=== PATIENT | female | born 1970 | race Caucasian/White ===

== ENCOUNTER 2020-04-17 12:57 | Emergency (ER) | payer BC, SELFPAY ==
--- NOTE | ~2020-04-17 | XR_ITS ---
EXAMINATION: XR hip RT min 2V DATE: 04/17/2020 13:29 INDICATION: Right hip pain. TECHNIQUE: 3 views of right hip were obtained. COMPARISON: None. FINDINGS: Bone alignment is normal. No fracture. Right hip joint space is normal. IMPRESSION: 1. Normal right hip. Reviewed, dictated and finalized at location A. IMPRESSION: 1. Normal right hip.
[2020-04-17 13:02] VITALS: BP 100/67; PULSE 76; RESP 22; TEMP 36.6; O2SAT 100
--- NOTE | 2020-04-17 13:07 | ED.BACK ---
HPI - Back Pain/Injury General Chief Complaint: Back Pain/Injury Stated Complaint: scyatic pain Time Seen by Provider: 04/17/20 13:17 Source: patient and RN notes reviewed Mode of arrival: ambulatory Limitations: no limitations History of Present Illness HPI Narrative: 49-year-old male presents with concern for right low back/hip pain. Reports pain radiates down the right leg and up the right side of her back. Reports she slipped and fell down stairs, sliding down approximately 3 stairs. Reports she also hit the back of her head on the stair. She denies loss of consciousness. Denies subsequent nausea, vomiting. Denies headache. She denies bruising, open skin. She denies any intervention. She denies loss of bowel or bladder function, perianal anesthesia, fever, abdominal pain. MD elicited complaint: back pain Related Data Home Medications Medication Instructions Recorded Confirmed etonogestrel [Nexplanon] 1 implant SUBDERMAL ONCE 07/05/19 04/17/20 topiramate [Topamax] 25 mg PO DAILY 07/05/19 04/17/20 topiramate [Topamax] 50 mg PO DAILY 07/05/19 04/17/20 Imitrex 04/17/20 Allergies Allergy/AdvReac Type Severity Reaction Status Date / Time Penicillins Allergy Unknown Rash Verified 04/17/20 13:17 codeine AdvReac Unknown Nausea and Verified 04/17/20 13:17 Vomiting hydrocodone AdvReac Unknown Nausea and Verified 04/17/20 13:17 Vomiting Review of Systems Review of Systems: Narrative: CONSTITUTIONAL: Denies malaise, chills, sweats, or fever. EYES: Denies visual changes CARDIOVASCULAR: Denies chest pain, palpitations, or edema. RESPIRATORY: Denies cough or dyspnea. GASTROINTESTINAL: Denies abdominal pain, nausea, vomiting, diarrhea, loss of bowel GENITOURINARY: Denies loss of bladder perianal anesthesia SKIN: Denies bruising, redness MUSCULOSKELETAL: Reports left hip/low back pain that radiates symptomatic abdominal left leg NEUROLOGIC: Denies numbness, weakness All systems reviewed & are unremarkable except as noted in HPI and below PMFSH Comments At time of signature, agree with nursing past medical, surgical, social and family history. There is no relevant family history pertinent to the presenting complaint Exam Narrative: Exam Narrative: GENERAL: Well-appearing, well-nourished, and in no acute distress. HEAD: Normocephalic, atraumatic. EYES: PERRLA and EOMI. NECK: Supple. No lymphadenopathy. CHEST: Clear to auscultation. No respiratory distress. HEART: Regular rate and rhythm. Distal pulses palpable and equal, cap refill <3 seconds ABDOMEN: Soft, nontender, nondistended, normal active bowel sounds, no palpable or pulsatile masses. No CVA tenderness MUSCULOSKELETAL: Normal range of motion and strength in all extremities; 5/5 strength with hip flexion and extension, dorsiflexion and extension, knee flexion and extension, plantar flexion and extension. Normal sensation in dermatomal distributions with sensitivity to light touch and pain. No midline back tenderness to palpation. No paraspinal tenderness. Transfers from sitting to standing. Right hip tenderness, patient walking slightly bent over, reports this helps pain, otherwise normal gait SKIN: Warm, dry, no rash. No ecchymosis, erythema, open wounds to back. NEURO: No focal deficits. Alert and oriented x3. Reflexes intact. PSYCH: Normal mood and affect Course Course Emergency Course: Patient is aware of diagnosis, understands and agrees to treatment plan. Anticipatory guidance given. Patient agrees to follow-up as directed and is aware of reasons to seek care at the emergency department. Portions of this record may have been created with voice recognition software Vital Signs Vital signs: Reviewed. MDM - Back Pain/Injury MDM Narrative Medical decision making narrative: No risk factors or findings concerning for epidural abscess, diskitis, vertebral osteomyelitis, cord compression, cauda equina, vertebral fracture or bone malignancy, AAA, or pyelonephri
[2020-04-17] MEDS: methylPREDNISolone SOD SUCC 125 MG VIAL IM (13:42)
== END 2020-04-17 14:05 | disposition home or self-care (01) ==
PROVIDERS: Emergency Provider Nurse Practitioner; PCP Internal Medicine
DX: M54.5 Low back pain (principal)
CPT/HCPCS: 73502; 96372; 99213; G0463; J2930

== ENCOUNTER 2020-07-04 17:39 | Emergency (ER) | payer BC, SELFPAY ==
--- NOTE | ~2020-07-04 | XR_ITS ---
EXAMINATION: XR foot RT min 3V DATE: 07/04/2020 18:46 INDICATION: Right foot pain TECHNIQUE: Dorsoplantar, lateral, and 2 oblique views of the right foot were obtained. COMPARISON: None. FINDINGS: There is no fracture, dislocation, or subluxation. Mild osteoarthritis is noted at the firs t metatarsophalangeal joint. The soft tissues are unremarkable. A plantar calcaneal enthesophyte is n oted. IMPRESSION: 1. No acute osseous abnormality. Reviewed, dictated and finalized at location A. SETTER
[2020-07-04 18:18] VITALS: BP 130/88; PULSE 92; RESP 20; TEMP 36.8; O2SAT 98
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
== END 2020-07-04 19:18 | disposition home or self-care (01) ==
PROVIDERS: Emergency Provider Nurse Practitioner; PCP Internal Medicine
DX: S99.922A Unspecified injury of left foot, initial encounter (principal); W18.49XA Other slipping, tripping and stumbling without falling, initial encounter; K13.70 Unspecified lesions of oral mucosa
CPT/HCPCS: 73630; 99213; G0463

== ENCOUNTER 2022-10-10 10:33 | Emergency (ER) | payer OTHER, SELFPAY ==
[2022-10-10 10:42] VITALS: BP 106/76; PULSE 81; RESP 20; TEMP 37.3; O2SAT 100
--- NOTE | 2022-10-10 11:01 | ED.NAVMDI ---
HPI - Nausea/Vomiting/Diarrhea General Chief complaint: Nausea/Vomiting/Diarrhea Stated complaint: diarrhea lower flank pain left side Source: patient and RN notes reviewed History of Present Illness HPI Narrative: 52-year-old female presents to urgent care with complaints of intermittent stomach cramping and left-sided pain every time she eats or drinks anything. Patient states this is followed by diarrhea and nausea. Patient states this has been going on since yesterday morning. Patient has a co-worker had the same symptoms this week and states the co-worker son had the same symptoms as well. Patient denies any pain at this time. Patient states her only discomfort is left upper flank pain and reports as a soreness. Patient states this left upper flank pain is exacerbated after she eats and drinks. Denies any fevers, chills, dysuria, or hematuria. Patient has been taking ibuprofen and Zofran with good relief. Some parts of this dictation were generated by voice recognition software and may contain typographical and/or grammatical inaccuracies. Related Data Home Medications Medication Instructions Recorded Confirmed etonogestrel 68 mg subdermal 1 implant subdermal ONCE 07/05/19 04/17/20 implant (Nexplanon) topiramate 50 mg tablet (Topamax) 50 mg PO DAILY 07/05/19 04/17/20 Imitrex 04/17/20 amitriptyline 25 mg tablet mg 10/10/22 baclofen 10 mg tablet mg 10/10/22 dulaglutide 0.75 mg/0.5 mL mg subcut 10/10/22 subcutaneous pen injector (Trulicity) gabapentin 300 mg capsule mg 10/10/22 sumatriptan succinate 100 mg tablet mg PO 10/10/22 Allergies Allergy/AdvReac Type Severity Reaction Status Date / Time Penicillins Allergy Unknown Rash Verified 08/27/22 15:27 codeine AdvReac Unknown Nausea and Verified 08/27/22 15:27 Vomiting hydrocodone AdvReac Unknown Nausea and Verified 08/27/22 15:27 Vomiting Review of Systems Review of Systems: CONSTITUTIONAL: Denies fever, chills, or sweats. EYES: Denies visual changes, redness, or discharge. ENT: Denies otalgia and sore throat CARDIOVASCULAR: Denies chest pain, palpitations, or edema. RESPIRATORY: Denies cough or dyspnea. GASTROINTESTINAL: abdominal pain, nausea, and diarrhea. GENITOURINARY: Denies dysuria or hematuria. SKIN: Denies rash or itching. MUSCULOSKELETAL: Denies back pain, joint pain, or myalgia. NEUROLOGIC: Denies headache, numbness, or weakness. [facility] Social History Social History (System 08/27/22 @ 15:27 by Ani Aaron) Gender identity (if verbalized by the patient): Female Comments At the time of my signature, I reviewed and agree with the nursing past medical, surgical, social, and family history. There is no relevant family history pertinent to the patient complaint. Exam Narrative: GENERAL: This is a well-nourished, well-developed patient, in no apparent distress. HEAD: normocephalic, atraumatic. EYES: PERRL. Sclera clear/white. Vision is grossly intact. EARS: External ears normal, auditory canals clear and without drainage, TMs normal without perforation. Hearing grossly intact. NOSE: External nose normal with no obvious nasal discharge, nares without redness, no rhinorrhea. THROAT: Mucous membranes moist, posterior pharynx clear. NECK: Neck supple, non-tender without lymphadenopathy, masses or thyromegaly. CARDIOVASCULAR: Regular rate and rhythm without murmurs, gallops, or rubs. RESPIRATORY: Clear to auscultation. Breath sounds equal bilaterally. No wheezes, rales, or rhonchi. GASTROINTESTINAL: Abdomen soft, non-tender, nondistended. Bowel sounds are active. No hepato-splenomegaly, or palpable masses. No guarding. SKIN: warm, intact with no suspicious lesions or rash, good texture and turgor. NEURO: awake, alert, and oriented to person, place and time. There were no obvious focal neurologic abnormalities. Course Course Level of Care: Express Care Visit Vital Signs Vital signs: Vital Signs Temperature 99.1 F 10/10/
== END 2022-10-10 11:14 | disposition home or self-care (01) ==
PROVIDERS: Emergency Provider Nurse Practitioner Family
DX: K52.9 Noninfective gastroenteritis and colitis, unspecified (principal); E11.9 Type 2 diabetes mellitus without complications
CPT/HCPCS: 99213; G0463

== ENCOUNTER 2023-08-19 08:25 | Emergency (ER) | payer OTHER, SELFPAY ==
[2023-08-19 08:36] VITALS: BP 123/90; PULSE 82; RESP 20; TEMP 36.9; O2SAT 98
--- NOTE | 2023-08-19 08:58 | ED.URI ---
HPI - URI/Sore Throat General Chief Complaint: Upper Respiratory Infection Stated Complaint: throat/rash around neck/fatigue Time Seen by Provider: 08/19/23 08:58 Source: patient, RN notes reviewed and old records reviewed Mode of arrival: ambulatory Limitations: no limitations History of Present Illness HPI Narrative: 53 year old female who presents to [facility] care with complaints of sore throat and rash around her neck and fatigue. Ptatient reports that her throat started hurting some yesterday and fatigue also with some headache and nausea, unknown if any fevers. Patient reports that she noted rash red itchy around her neck this morning. Patient reports that she has been taking Ibuprofen and did take Imitrex this morning for her headache and Zyrtec. MD elicited complaint: sore throat and other (rash) Onset (ago): day(s) (day 2 of symptoms) Pain scale (0-10): 9 Able to tolerate fluids by mouth: Yes Exacerbating factors: swallowing Treatments prior to arrival: ibuprofen and other (Zyrtec, Imitrex) Related Data Home Medications Medication Instructions Recorded Confirmed gabapentin 300 mg capsule 300 mg PO BID 10/10/22 08/19/23 sumatriptan succinate 100 mg tablet 100 mg PO DAILY PRN Migraine 10/10/22 08/19/23 Headache Allergies Allergy/AdvReac Type Severity Reaction Status Date / Time Penicillins Allergy Unknown Rash Verified 08/19/23 09:04 codeine AdvReac Unknown Nausea and Verified 08/19/23 09:04 Vomiting hydrocodone AdvReac Unknown Nausea and Verified 08/19/23 09:04 Vomiting Review of Systems Review of Systems: CONSTITUTIONAL: Reports malaise, chills, sweats, unknown if fever, states fatigue EYES: Denies visual changes, redness, or discharge. ENT: Reports rhinorrhea, congestion,no sinus pain,no otalgia and positive for sore throat. CARDIOVASCULAR: Denies chest pain, palpitations, or edema. RESPIRATORY: Reports no cough.? Denies dyspnea. GASTROINTESTINAL: Denies abdominal pain, reports nausea,no vomiting,no diarrhea SKIN: Reports red fine rash around neck with itching. MUSCULOSKELETAL: Denies myalgia. NEUROLOGIC: Reports headache. All systems reviewed & are unremarkable except as noted in HPI and below PMFSH Past Medical History Medical History (Updated 08/20/23 @ 08:13 by Frida Rodney NP) Asthma Hx of migraines Laceration of right lower leg reports 90 stitches Sciatica reports disc problem in back Social History Social History (Updated 08/20/23 @ 08:01 by Frida Rodney NP) Smoking status: Never smoker Alcohol intake: current Alcohol use details: social Substance use type: does not use Living arrangements: with family Gender identity (if verbalized by the patient): Female Comments At time of signature, agree with nursing past medical, surgical, social and family history. There is no relevant family history pertinent to the presenting complaint Exam Narrative: GENERAL: Well-appearing, well-nourished, and in no acute distress. HEAD: Normocephalic EYES: PERRLA, conjunctivae clear ENT: Nares clear, turbinates edematous and erythematous, clear discharge. Mucous membranes moist. TM pearly ann with dull light reflex bilaterally; no tragal tenderness. Oropharynx erythematous without lesions. Tonsils not enlarged and left tonsil region noted to have white pus pockets, no drooling, no hoarseness, no trismus, uvula midline. NECK: Supple. No lymphadenopathy CHEST: Clear to auscultation, breath sounds equal. No wheezing, rhonchi, rales, or stridor. No respiratory distress, speaks in full sentences.SAO2 98% on room air HEART: Regular rate and rhythm. No murmur heard. SKIN: Warm, dry, fine red rash around neck with itching.. NEURO: Alert and oriented x3. PSYCH: Normal mood and affect Course Course Emergency Course: Patient is aware of diagnosis, understands and agrees to treatment plan.? Anticipatory guidance given.? Patient agrees t
== END 2023-08-19 09:20 | disposition home or self-care (01) ==
PROVIDERS: Emergency Provider Registered Nurse
DX: J02.9 Acute pharyngitis, unspecified (principal); R21 Rash and other nonspecific skin eruption; J45.909 Unspecified asthma, uncomplicated
CPT/HCPCS: 87081; 87880; 99213; G0463

== ENCOUNTER 2023-09-13 15:05 | Emergency (ER) | payer OTHER, SELFPAY ==
[2023-09-13 15:13] VITALS: BP 129/86; PULSE 102; RESP 18; TEMP 36.5; O2SAT 100
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
== END 2023-09-13 15:33 | disposition home or self-care (01) ==
PROVIDERS: Emergency Provider Registered Nurse
DX: M54.31 Sciatica, right side (principal); J45.909 Unspecified asthma, uncomplicated
CPT/HCPCS: 99213; G0463

== ENCOUNTER 2023-11-17 11:27 | Emergency (ER) | payer OTHER, SELFPAY ==
[2023-11-17 11:32] VITALS: BP 133/88; PULSE 87; RESP 20; TEMP 36.8; O2SAT 97
--- NOTE | 2023-11-17 11:37 | ED.GENADULT ---
HPI - General Adult General Chief complaint: Upper Respiratory Infection Stated complaint: Sore Throat/Fever Source: patient, RN notes reviewed and old records reviewed Mode of arrival: ambulatory Limitations: no limitations History of Present Illness HPI narrative: 53-year-old female [facility] with complaints cough, congestion, sore throat, headache, nausea, vomiting that started yesterday. Patient states took Imitrex today with no relief. Patient denies chest pain, dizziness, weakness, shortness of breath. Related Data Home Medications Medication Instructions Recorded Confirmed gabapentin 300 mg capsule 300 mg PO BID 10/10/22 11/17/23 sumatriptan succinate 100 mg tablet 100 mg PO DAILY PRN Migraine 10/10/22 11/17/23 Headache diclofenac sodium 1 % topical gel 4 g topical QID 09/13/23 11/17/23 Allergies Allergy/AdvReac Type Severity Reaction Status Date / Time Penicillins Allergy Unknown Rash Verified 11/17/23 11:39 codeine AdvReac Unknown Nausea and Verified 11/17/23 11:39 Vomiting hydrocodone AdvReac Unknown Nausea and Verified 11/17/23 11:39 Vomiting Review of Systems Constitutional: Constitutional: Reports no additional constitutional complaints, Reports body ache(s), Denies chills, Denies fatigue, Denies fever(s) and Reports headache(s) Eyes: Eyes: Reports no additional eye complaints and Denies blurry vision ENT: Reports system reviewed and no additional complaints, except as documented, Denies vertigo, Denies dizziness, Denies ear discharge, Denies otalgia, Denies facial pain, Reports headache(s), Reports nasal congestion, Reports nasal discharge, Denies sinus pain, Denies sinus pressure and Reports sore throat Cardiovascular: Cardiovascular: Reports no additional cardiovascular complaints, Denies chest pain, Denies chest pain at rest, Denies rapid heart rate and Denies dyspnea Respiratory: Respiratory: Reports no additional respiratory complaints, Denies chest congestion, Reports cough, Denies pain on inspiration, Denies pain with cough and Denies dyspnea Gastrointestinal: Gastrointestinal: Denies abdominal pain, Denies diarrhea, Denies nausea and Denies vomiting Integumentary/Breasts: Skin/Breast: Denies rash Neurologic: Reports system reviewed and no additional complaints, except as documented, Denies vertigo, Denies dizziness and Reports headache(s) Endocrine: Endocrine: Denies fatigue PMFSH Past Medical History Medical History Asthma Hx of migraines Laceration of right lower leg reports 90 stitches Sciatica reports disc problem in back Social History Social History Smoking status: Never smoker Alcohol intake: current Alcohol use details: social Substance use type: does not use Living arrangements: with family Gender identity (if verbalized by the patient): Female Comments At the time of my signature, I reviewed and agree with the nursing past medical, surgical, social, and family history. There is no relevant family history pertinent to the patient complaint. Exam Const: General: cooperative, healthy appearing, no acute distress and well nourished Nutritional Appearance: well nourished Orientation/consciousness: patient oriented x3 Limitations: no limitations HENMT: Head: normal to inspection and normocephalic Ears: external ears normal, TM's normal bilaterally, EAC's normal and mastoids normal Face/Nose/Sinus: Normal nasal mucous membranes and turbinates present and normal facial exam Face and sinus: normal facial exam Mouth: Yes Normal oral and palatal mucosa present, Yes oropharynx normal and Yes moist mucous membranes Throat: tonsils normal, uvula midline, normal tonsils, no peritonsillar masses, posterior oropharynx abnormal erythema, postnasal drainage and no uvular edema Eyes: General: appearance normal, both eyes and all related
== END 2023-11-17 12:02 | disposition home or self-care (01) ==
PROVIDERS: Emergency Provider Registered Nurse
DX: B34.9 Viral infection, unspecified (principal); Z20.822 Contact with and (suspected) exposure to COVID-19; J45.909 Unspecified asthma, uncomplicated
CPT/HCPCS: 87081; 87426; 87804; 87880; 99213; G0463

== ENCOUNTER 2024-03-19 09:05 | Emergency (ER) | payer OTHER, SELFPAY ==
[2024-03-19 09:12] VITALS: BP 123/86; PULSE 98; RESP 20; TEMP 36.6; O2SAT 100
--- NOTE | 2024-03-19 09:37 | ED.URI ---
HPI - URI/Sore Throat General Chief Complaint: Upper Respiratory Infection Stated Complaint: left eye/sinus infection Time Seen by Provider: 03/19/24 09:47 Source: patient and RN notes reviewed Mode of arrival: ambulatory Limitations: no limitations History of Present Illness HPI Narrative: 53-year-old female presents with concern for left eye redness, itchiness, irritation with discharge for 1 day. She reports it was crusted shut when she woke up this morning. She also reports sinus congestion, pain and pressure for 3 days. She has been taking antihistamines. MD elicited complaint: nasal congestion Related Data Home Medications Medication Instructions Recorded Confirmed gabapentin 300 mg capsule 300 mg PO BID 10/10/22 11/17/23 sumatriptan succinate 100 mg tablet 100 mg PO DAILY PRN Migraine 10/10/22 11/17/23 Headache diclofenac sodium 1 % topical gel 4 g topical QID 09/13/23 11/17/23 baclofen 10 mg tablet mg 03/19/24 tirzepatide 2.5 mg/0.5 mL mg subcut 03/19/24 subcutaneous pen injector (Shaila) Allergies Allergy/AdvReac Type Severity Reaction Status Date / Time Penicillins Allergy Unknown Rash Verified 11/17/23 11:39 codeine AdvReac Unknown Nausea and Verified 11/17/23 11:39 Vomiting hydrocodone AdvReac Unknown Nausea and Verified 11/17/23 11:39 Vomiting Review of Systems Review of Systems: CONSTITUTIONAL: Denies malaise, chills, sweats, or fever. EYES: Denies visual changes. Reports left eye redness, irritation, discharge. ENT: Reports rhinorrhea, congestion, sinus pain CARDIOVASCULAR: Denies chest pain, palpitations, or edema. RESPIRATORY: Denies cough. Denies dyspnea. GASTROINTESTINAL: Denies abdominal pain, nausea, vomiting, diarrhea SKIN: Denies rash or itching. MUSCULOSKELETAL: Denies myalgia. NEUROLOGIC: Denies headache. All systems reviewed & are unremarkable except as noted in HPI and below PMFSH Past Medical History Medical History Asthma Hx of migraines Laceration of right lower leg reports 90 stitches Sciatica reports disc problem in back Social History Social History Smoking status: Never smoker Alcohol intake: current Alcohol use details: social Substance use type: does not use Living arrangements: with family Gender identity (if verbalized by the patient): Female Comments At time of signature, agree with nursing past medical, surgical, social and family history. There is no relevant family history pertinent to the presenting complaint Exam Narrative: GENERAL: Well-appearing, well-nourished, and in no acute distress. HEAD: Normocephalic EYES: PERRLA, left sclera and conjunctivae injected ENT: Nares clear, turbinates edematous and erythematous, clear discharge. Mucous membranes moist. TM pearly ann with sharp light reflex bilaterally; no tragal tenderness. Oropharynx not erythematous without lesions. Tonsils not enlarged and without exudate, no drooling, no hoarseness, no trismus, uvula midline. NECK: Supple. No lymphadenopathy CHEST: Clear to auscultation, breath sounds equal. No wheezing, rhonchi, rales, or stridor. No respiratory distress, speaks in full sentences. HEART: Regular rate and rhythm. No murmur heard. SKIN: Warm, dry, no rash. NEURO: Alert and oriented x3. PSYCH: Normal mood and affect Course Course Emergency Course: Patient is aware of diagnosis, understands and agrees to treatment plan. Anticipatory guidance given. Patient agrees to follow-up as directed and is aware of reasons to seek care at the emergency department. Portions of this record may have been created with voice recognition software Level of Care: Express Care Visit Vital Signs Vital signs: Vital Signs Temperature 97.9 F 03/19/24 09:12 Pulse Rate 98 03/19/24 09:12 Respiratory Rate 20 03/19/24 09:12 Blood Pressure 123/86
== END 2024-03-19 09:57 | disposition home or self-care (01) ==
PROVIDERS: Emergency Provider Nurse Practitioner
DX: H10.9 Unspecified conjunctivitis (principal); J06.9 Acute upper respiratory infection, unspecified; J45.909 Unspecified asthma, uncomplicated
CPT/HCPCS: 99213; G0463

== ENCOUNTER 2024-07-26 11:56 | Emergency (ER) | payer OTHER, SELFPAY ==
[2024-07-26 12:00] VITALS: BP 130/85; PULSE 99; RESP 20; TEMP 36.6; O2SAT 99
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
== END 2024-07-26 13:25 | disposition home or self-care (01) ==
PROVIDERS: Emergency Provider Registered Nurse
DX: M54.50 Low back pain, unspecified (principal); E11.9 Type 2 diabetes mellitus without complications; J45.909 Unspecified asthma, uncomplicated
CPT/HCPCS: 99213; G0463